=== PATIENT | male | born 2000 | race Caucasian/White ===

== ENCOUNTER 2018-07-05 23:19 | Emergency (ER) | payer BC ==
[~2018-07-05] VITALS: Ht 182.9 cm; Wt 77.3 kg
[2018-07-05 23:22] VITALS: BP 144/92; TEMP 98.6
[2018-07-06 00:31] VITALS: PULSE 69
== END 2018-07-06 00:31 | disposition home or self-care (01) ==
LOC: COL.ER 23:19
DX: S00.93XA Contusion of unspecified part of head, initial encounter (principal); W01.198A Fall on same level from slipping, tripping and stumbling with subsequent striking against other object, initial encounter; S40.211A Abrasion of right shoulder, initial encounter; Y92.009 Unspecified place in unspecified non-institutional (private) residence as the place of occurrence of the external cause; Y93.E1 Activity, personal bathing and showering